=== PATIENT | male | born 1990 | race Caucasian/White ===

== ENCOUNTER 2017-08-05 11:18 | Emergency (ER) | payer MEDICAID, OTHER ==
[~2017-08-05] VITALS: Ht 182.9 cm; Wt 69.8 kg
[2017-08-05] MEDS ORDERED: CefTRIAXone 1000mg IM Kit (w/lidocaine diluent) IM ONE (11:35)
[2017-08-05] MEDS ORDERED: CEPH500C5 PO (11:54)
[2017-08-05] MEDS ORDERED: SULF1TAB49 PO (11:54)
[2017-08-05 12:59] VITALS: BP 115/65
== END 2017-08-05 13:03 | disposition home or self-care (01) ==
LOC: ER 11:18
DX: S61.432A Puncture wound without foreign body of left hand, initial encounter (principal); L03.114 Cellulitis of left upper limb; Z79.899 Other long term (current) drug therapy; X58.XXXA Exposure to other specified factors, initial encounter; Y93.89 Activity, other specified; Y92.89 Other specified places as the place of occurrence of the external cause; Y99.8 Other external cause status
CPT/HCPCS: 73120; 96372; 99284; A6449; J0696

== ENCOUNTER 2019-01-09 09:27 | Emergency (ER) | payer MEDICAID, OTHER ==
[~2019-01-09] VITALS: Ht 182.9 cm; Wt 75.0 kg
[2019-01-09 09:31] VITALS: BP 119/75
--- NOTE | 2019-01-09 09:56 | NUR ---
C/O RIGHT LOWER JAW PAIN. STATES HAVING TOOTH ACHE X 1 WEEK. SWELLING NOTED WITH PAIN AND TENDERNESS.
[2019-01-09] MEDS ORDERED: PENI500T2 PO (10:13)
== END 2019-01-09 10:36 | disposition home or self-care (01) ==
LOC: ER 09:27
DX: K04.7 Periapical abscess without sinus (principal); K02.9 Dental caries, unspecified; F17.200 Nicotine dependence, unspecified, uncomplicated
CPT/HCPCS: 99283